=== PATIENT | male | born 1990 | race Caucasian/White ===

== ENCOUNTER → 2022-04-23 | Outpatient (CLI) | payer BC ==
[~2022-04-23] MED LIST: CYCL10 PO; IBUP600 PO; IBUP800 PO; Norco 5-325 Ta1 EACH PO; PSEU120ER PO
[2022-04-23 11:20] LABS: BASOPHILS ABSOLUTE AUTO 0.09 K/mm3 (0.00-0.23); BASOPHILS PERCENT AUTO 1 % (0-2); EOSINOPHILS ABSOLUTE AUTO 0.42 K/mm3 (0.00-0.68); EOSINOPHILS PERCENT AUTO 4 % (0-6); Hematocrit 46.4 % (33.0-51.0); Hemoglobin 15.2 g/dL (11.5-16.0); IMMATURE GRAN ABSOLUTE AUTO 0.05 K/mm3 (0.00-0.10); IMMATURE GRAN PERCENT AUTO 0 % (0-1); LYMPHOCYTES ABSOLUTE AUTO 3.03 K/mm3 (0.84-5.20); LYMPHOCYTES PERCENT AUTO 27 % (21-46); MONOCYTES ABSOLUTE AUTO 0.47 K/mm3 (0.16-1.47); MONOCYTES PERCENT AUTO 4 % (4-13); Mean Corpuscular HGB 29.9 pg (26.0-34.0); Mean Corpuscular HGB Conc 32.8 g/dL (31.5-36.5); Mean Corpuscular Volume 91 fL (80-100); Mean Platelet Volume 9.9 fL (9.1-12.4); NEUTROPHILS ABSOLUTE AUTO 7.29 K/mm3 (1.96-9.15); NEUTROPHILS PERCENT AUTO 64 % (41-73); Platelet Count 268 K/mm3 (150-400); RDW Coefficient Variation 14.2 % (11.7-14.2); RDW Standard Deviation 47.1 fL (35.1-46.3); Red Blood Cell Count 5.08 M/mm3 (3.80-5.20); White Blood Cell Count 11.35 K/mm3 (4.00-11.30)
[2022-04-23 11:26] LABS: Albumin, Blood 3.8 g/dL (3.4-5.0); Bilirubin, Total 0.9 mg/dL (0.1-1.0); Bun/Creatinine Ratio 14.9 (12.0-20.0); Calcium, Blood 8.9 mg/dL (8.5-10.1); Creatinine, Blood 0.74 mg/dL (0.40-1.00); Potassium, Blood 3.9 mmol/L (3.5-5.5); Total Protein, Blood 7.8 g/dL (6.4-8.2)
== END | disposition home or self-care (01) ==
LOC: EDSEX 11:11 → LAB SHORT 11:11
PROVIDERS: Physician Assistant
DX: R07.9 Chest pain, unspecified (principal)
CPT/HCPCS: 80053; 84484; 85025; 85379

== ENCOUNTER 2022-11-29 21:35 | Emergency (ER) | payer BC ==
[~2022-11-29] VITALS: Ht 160 cm; Wt 113.8 kg
[2022-11-29 21:58] VITALS: BP 153/88
[2022-11-29] MEDS ORDERED: FERSU300 PO (22:17)
[2022-11-29] MEDS ORDERED: Prinivil10 MG PO (22:17)
[2022-11-29] MEDS ORDERED: TESTOSTERONE60 GM IM (22:17)
[2022-11-29] MEDS ORDERED: PANT20 PO (22:18)
[2022-11-29] MEDS ORDERED: SERT100 PO (22:18)
[2022-11-29] MEDS ORDERED: TOPI25 PO (22:18)
[2022-11-29 22:47] LABS: BASOPHILS ABSOLUTE AUTO 0.07 K/mm3 (0.00-0.23); BASOPHILS PERCENT AUTO 1 % (0-2); EOSINOPHILS ABSOLUTE AUTO 0.37 K/mm3 (0.00-0.68); EOSINOPHILS PERCENT AUTO 3 % (0-6); Hemoglobin 15.7 g/dL (13.5-17.5); IMMATURE GRAN ABSOLUTE AUTO 0.03 K/mm3 (0.00-0.10); IMMATURE GRAN PERCENT AUTO 0 % (0-1); LYMPHOCYTES ABSOLUTE AUTO 3.57 K/mm3 (0.84-5.20); LYMPHOCYTES PERCENT AUTO 28 % (21-46); MONOCYTES ABSOLUTE AUTO 0.56 K/mm3 (0.16-1.47); MONOCYTES PERCENT AUTO 4 % (4-13); Mean Corpuscular HGB 30.8 pg (26.0-34.0); Mean Corpuscular HGB Conc 34.1 g/dL (31.5-36.5); Mean Corpuscular Volume 90 fL (80-100); Mean Platelet Volume 9.7 fL (9.1-12.4); NEUTROPHILS ABSOLUTE AUTO 8.03 K/mm3 (1.96-9.15); NEUTROPHILS PERCENT AUTO 64 % (41-73); Platelet Count 383 K/mm3 (150-400); RDW Coefficient Variation 12.7 % (11.7-14.2); RDW Standard Deviation 41.9 fL (35.1-46.3); Red Blood Cell Count 5.09 M/mm3 (4.30-5.90); White Blood Cell Count 12.63 K/mm3 (4.00-11.30)
[2022-11-29 23:06] LABS: Albumin, Blood 3.7 g/dL (3.4-5.0); Albumin/Globulin Ratio 0.9 (0.8-1.8); Bilirubin, Total 0.4 mg/dL (0.1-1.0); Bun/Creatinine Ratio 14.6 (12.0-20.0); Calcium, Blood 9.2 mg/dL (8.5-10.1); Creatinine, Blood 0.96 mg/dL (0.60-1.20); Globulin, Blood 4.1 g/dL (2.2-4.0); Potassium, Blood 3.9 mmol/L (3.5-5.5); Total Protein, Blood 7.8 g/dL (6.4-8.2)
== END 2022-11-30 00:22 | disposition home or self-care (01) ==
LOC: ER 21:35
PROVIDERS: Student in an Organized Health Care Education/Training Program
DX: G89.18 Other acute postprocedural pain (principal); N64.4 Mastodynia; Z88.0 Allergy status to penicillin; Z91.013 Allergy to seafood; Z79.899 Other long term (current) drug therapy
CPT/HCPCS: 80053; 85025; 99283; A9270

== ENCOUNTER → 2023-02-28 | Outpatient (CLI) | payer BC ==
[~2023-02-28] MED LIST changes: +FERSU300 PO; +PANT20 PO; +Prinivil10 MG PO; +SERT100 PO; +TESTOSTERONE60 GM IM; +TOPI25 PO
== END | disposition home or self-care (01) ==
LOC: LAB SHORT 12:22 → LAB 12:22
DX: R10.84 Generalized abdominal pain (principal)
CPT/HCPCS: 85651

== ENCOUNTER 2023-11-20 20:44 | Emergency (ER) | payer BC ==
[~2023-11-20] VITALS: Ht 160 cm; Wt 116.1 kg
[2023-11-20] MEDS ORDERED: Albuterol 2.5 MG/3 ML VIAL INH SCH (22:30)
[2023-11-20] MEDS ORDERED: Ketorolac Tromethamine 15mg Vial IM ONE (22:30)
[2023-11-20 23:00] VITALS: BP 171/108
== END 2023-11-20 23:02 | disposition home or self-care (01) ==
LOC: ER 20:44
DX: J45.909 Unspecified asthma, uncomplicated (principal); J02.9 Acute pharyngitis, unspecified; R10.9 Unspecified abdominal pain; R19.7 Diarrhea, unspecified; Z88.0 Allergy status to penicillin; Z91.013 Allergy to seafood; Z91.048 Other nonmedicinal substance allergy status; Z79.899 Other long term (current) drug therapy
CPT/HCPCS: 71046; 87081; 87430; 94644; 94664; 96372; 99285-25; J1885

== ENCOUNTER 2024-06-13 04:57 | Emergency (ER) | payer OTHER ==
[~2024-06-13] VITALS: Ht 160 cm; Wt 74.8 kg
[2024-06-13] MEDS ORDERED: NS 1,000 ML IV SCH (07:45)
[2024-06-13] MEDS ORDERED: Prochlorperazine Edisylate 10 mg Vial IV ONE (07:45)
[2024-06-13] MEDS ORDERED: DiphenhydrAMINE HCl 50 MG/ML 1ML Vial IV ONE (07:45)
[2024-06-13 08:18] VITALS: BP 156/121
== END 2024-06-13 09:34 | disposition home or self-care (01) ==
LOC: ER 04:57
DX: R51.9 Headache, unspecified (principal); Z88.0 Allergy status to penicillin; Z88.8 Allergy status to other drugs, medicaments and biological substances; Z91.013 Allergy to seafood; Z79.899 Other long term (current) drug therapy
CPT/HCPCS: 96374; 96375; 99283-25; J0780; J1200; J7030

== ENCOUNTER 2024-08-10 01:17 | Emergency (ER) | payer OTHER ==
[~2024-08-10] VITALS: Ht 160 cm; Wt 121.6 kg
[2024-08-10] MEDS ORDERED: Prochlorperazine Edisylate 10 mg Vial IV ONE (02:15)
[2024-08-10] MEDS ORDERED: Dexamethasone Sod Phos 10 MG/ML 1ML VIAL IV ONE (02:15)
[2024-08-10] MEDS ORDERED: Ketorolac Tromethamine 15mg Vial IV ONE (02:15)
[2024-08-10] MEDS ORDERED: ONDA4ODT MM (03:44)
[2024-08-10 03:49] VITALS: BP 147/93
== END 2024-08-10 03:48 | disposition home or self-care (01) ==
LOC: ER 01:17
DX: I10 Essential (primary) hypertension (principal); R51.9 Headache, unspecified; Z79.899 Other long term (current) drug therapy; Z88.0 Allergy status to penicillin; Z91.013 Allergy to seafood; Z88.8 Allergy status to other drugs, medicaments and biological substances
CPT/HCPCS: 96374; 96375; 99283-25; A9270; J0780; J1100; J1885

== ENCOUNTER → 2024-10-15 | Outpatient (CLI) | payer OTHER ==
[~2024-10-15] MED LIST changes: +ONDA4ODT MM
== END ==
LOC: LAB SHORT 16:15 → LAB 16:15
DX: R19.7 Diarrhea, unspecified (principal)
CPT/HCPCS: 87015; 87045; 87046; 87899